=== PATIENT | female | born 1995 | race Two or more races ===

== ENCOUNTER 2017-12-28 21:21 | Emergency (ER) | payer MEDICAID ==
[~2017-12-28] VITALS: Ht 160 cm; Wt 61.0 kg
[~2017-12-28 21:21] MED LIST: NAPR-1154 PO
[2017-12-28 22:08] LABS: BASOPHILS % (AUTO) 0.4 % (0-1); EOSINOPHILS # (AUTO) 0.1 X10'3 (0-0.9); EOSINOPHILS % (AUTO) 1.1 % (0-6); HEMATOCRIT 35.8 % (35.0-45.0); HEMOGLOBIN 12.6 g/dl (12.0-16.0); LYMPHOCYTES # (AUTO) 1.2 X10'3 (1.1-4.8); LYMPHOCYTES % (AUTO) 15.8 % (21-51); MEAN CORPUSCULAR HGB CONC 35.2 % (33.0-36.5); MEAN CORPUSCULAR VOLUME 93.6 FL (78-98); MEAN PLATELET VOLUME 9.4 FL (7.4-10.4); MONOCYTES # (AUTO) 0.8 X10'3 (0-0.9); MONOCYTES % (AUTO) 10.1 % (2-12); NEUTROPHILS # (AUTO) 5.6 X10'3 (1.8-7.7); NEUTROPHILS % (AUTO) 72.6 % (42-75); PLATELET COUNT 137 X10'3 (140-440); RED BLOOD COUNT 3.83 X10'6 (4.20-5.60); RED CELL DISTRIBUTION WIDTH 11.2 % (11.5-14.5); WHITE BLOOD COUNT 7.7 X10'3 (4.5-11.0)
[2017-12-28] MEDS ORDERED: morphine 4 MG/ML inj SYRINge IV PRN (22:10)
[2017-12-28] MEDS ORDERED: normal saline 1000ML IV soln IVB ONE (22:10)
[2017-12-28] MEDS ORDERED: famotidine/PF 10 mg/ml inj IV ONE (22:10)
[2017-12-28 22:12] LABS: PROTHROMBIN TIME 10.2 SECONDS (9.0-12.0)
[2017-12-28 22:17] LABS: ALANINE AMINOTRANSFERASE 46 U/L (12-78); ALBUMIN 3.6 G/DL (3.4-5.0); ALKALINE PHOSPHATASE 85 IU/L (20-180); AMYLASE 38 U/L (25-115); ANION GAP 7 (8-16); ASPARTATE AMINO TRANSFERASE 70 U/L (10-37); BILIRUBIN,TOTAL 0.2 MG/DL (0.1-1.0); BLOOD UREA NITROGEN 17 MG/DL (7-18); BUN/CREATININE RATIO 16.7 (6.6-38.0); CALCIUM 8.6 MG/DL (8.5-10.1); CHLORIDE 102 MMOL/L (99-107); CREATININE 1.02 MG/DL (0.40-0.90); GLUCOSE 123 MG/DL (70-104); LIPASE 137 U/L (73-393); POTASSIUM 3.7 MMOL/L (3.5-5.1); SODIUM 135 MMOL/L (135-145); TOTAL CARBON DIOXIDE 25.7 MMOL/L (24-32); TOTAL PROTEIN 7.2 G/DL (6.4-8.2); eGFR 69 ML/MIN
[2017-12-28] MEDS ORDERED: acetaminophen 325mg tablet PO ONE (22:30)
[2017-12-28 22:33] VITALS: BP 115/60
[2017-12-28 22:35] LABS: CLARITY,URINE CLEAR (Clear); COLOR,URINE YELLOW (Yellow); GLUCOSE, URINE NEGATIVE (Neg); KETONES,URINE NEGATIVE (Neg); LEUKOCYTE ESTERASE ,URINE NEGATIVE (Neg); NITRITES, URINE NEGATIVE (Neg); OCCULT BLOOD,URINE NEGATIVE (Neg); PH,URINE 7.5 (4.8-8.0); PROTEIN,URINE NEGATIVE (Neg); UROBILINOGEN,URINE 0.2 E.U/dL (0.2-1.0)
[2017-12-28 22:38] LABS: UA COLLECTION TYPE CLN CATCH MIDSTREAM
[2017-12-28 22:39] LABS: URINE HCG NEGATIVE (NEG)
[2017-12-28] MEDS ORDERED: PANT-47 PO (23:00)
[2017-12-28] MEDS ORDERED: pantoprazole 40 MG vial IV ONE (23:00)
[2017-12-28] MEDS ORDERED: ONDA4TAB9 SL (23:00)
[2017-12-28] MEDS ORDERED: SUCR1ORA2 PO (23:00)
== END 2017-12-28 23:24 | disposition home or self-care (01) ==
LOC: ER 21:22
DX: K29.50 Unspecified chronic gastritis without bleeding (principal); R10.13 Epigastric pain; B34.9 Viral infection, unspecified; Z79.899 Other long term (current) drug therapy
CPT/HCPCS: 36415; 80053; 81003; 81025; 82150; 83690; 85025; 85610; 96361; 96374; 96375; 99284; C9113; J2270; J3490; J7030